=== PATIENT | female | born 1990 | race Caucasian/White ===

== ENCOUNTER → 2016-11-20 | Outpatient (REF) | payer BC ==
[2016-11-20 17:05] LABS: CONTROL LINE HCG INT CTR LINE PRESENT
== END ==
LOC: M LAB REF 16:38
PROVIDERS: ATTEND Nurse Practitioner Adult Health
DX: N91.2 Amenorrhea, unspecified (principal)

== ENCOUNTER → 2020-02-04 | Outpatient (REF) | payer OTHER ==
[2020-02-04 17:22] LABS: HEMATOCRIT 38.2 % (36.0-47.0); MEAN CORPUSCULAR HEMOGLOBIN 30.2 pg (27.0-33.0); MEAN CORPUSCULAR VOLUME 88.8 fl (80.0-96.0); PLATELET COUNT, AUTOMATED 290 10^3/uL (150-450); WHITE BLOOD COUNT 9.1 10^3/uL (4.0-10.0)
[2020-02-04 18:50] LABS: CHLAMYDIA DNA AMPLIFICATION NEGATIVE (NEGATIVE); GC DNA AMPLIFICATION NEGATIVE (NEGATIVE)
[2020-02-07 08:52] LABS: HIV 1&2 SCREEN CENTAUR NEGATIVE (NEGATIVE); RUBELLA IgG QUALITATIVE IMMUNE (IMMUNE)
[2020-02-07 11:20] LABS: HEPATITIS B SURFACE ANTIGEN NEGATIVE (NEGATIVE); HEPATITIS C VIRUS ABY INDEX 0.1 INDEX (<0.8)
== END ==
LOC: M PLALAB 13:13
PROVIDERS: ATTEND Advanced Practice Midwife
DX: Z34.81 Encounter for supervision of other normal pregnancy, first trimester (principal)

== ENCOUNTER → 2020-03-16 | Outpatient (CLI) | payer OTHER ==
--- NOTE | 2020-03-17 01:28 | REP ---
Clinical: Anatomical evaluation. Comparison: None . Findings: Examination demonstrates a single live intrauterine in variable presentation. motion is identified by technologist. Placenta is noted posterior and grade zero with evidence for placenta previa. Amniotic fluid volume is normal. Cervix measures 5.0 cm in length and appears closed. No evidence for nuchal cord. Gestational age by current measurements 19 weeks 6 days with MARINO 08/04/2020 . FHR equals 169 beats per minute. BPD 4.8 cm 20 weeks 3 days HC 17.6 cm 20 weeks 0 days AC 14.2 cm 19 weeks 4 days FL 3.1 cm 19 weeks 5 days HL 2.8 cm 19 weeks 1 day HC/AC ratio 1.24 Estimated weight 308 grams ( 43rd percentile). Anatomical assessment demonstrates normal structures including cranium, choroid plexus, cavum, cerebellum/posterior fossa, facial features, lungs, four-chamber heart, diaphragm, stomach, cord insertion/three-vessel cord, kidneys/bladder, spine, and extremities. Impression: 1. Single live intrauterine in variable presentation demonstrating appropriate estimated weight. 2. Placenta previa noted. 3. Limited evaluation of the cardiac ventricular outflow tracts. Remainder of the anatomical assessment is complete and normal. Electronically Signed by Gamal Quiroz MD 03/17/2020 01:20 A
== END ==
LOC: M RAD 13:25
PROVIDERS: ATTEND Advanced Practice Midwife
DX: Z34.90 Encounter for supervision of normal pregnancy, unspecified, unspecified trimester (principal)

== ENCOUNTER → 2020-05-04 | Outpatient (REF) | payer OTHER ==
[2020-05-04 18:45] LABS: HEMATOCRIT 33.1 % (36.0-47.0); HEMOGLOBIN 10.8 g/dl (12.0-15.5); MEAN CORPUSCULAR HEMOGLOBIN 30.8 pg (27.0-33.0); MEAN CORPUSCULAR HGB CONC 32.6 g/dl (32.0-36.5); MEAN CORPUSCULAR VOLUME 94.3 fl (80.0-96.0); PLATELET COUNT, AUTOMATED 213 10^3/uL (150-450); RED BLOOD COUNT 3.51 10^6/uL (4.00-5.40)
== END ==
LOC: M PLALAB 12:56
PROVIDERS: ATTEND Specialist
DX: Z36.89 Encounter for other specified antenatal screening (principal); Z3A.01 Less than 8 weeks gestation of pregnancy
CPT/HCPCS: 36415; 82950; 85027; 86850; 86900; 86901; J2790

== ENCOUNTER → 2020-05-04 | Outpatient (CLI) | payer OTHER ==
[~2020-05-04] MED LIST: CVS1CAP2 PO; IBUP80TA PO; PRENTAB53 PO; elderberry PO
--- NOTE | 2020-05-22 14:59 | REP ---
REASON FOR EXAM: Followup. Prior exam of 03/16/2020 showed possible placenta previa and incomplete evaluation of the ventricular outflow tracts. Multiple ultrasonographic images of the gravid uterus show a single living intrauterine gestation in the breech presentation. Doppler interrogation of the heart shows a heart rate of 156 beats per minute. The placenta is posterior and not low-lying. The subjective amniotic fluid volume is within normal limits. The cervix measures 4 cm in length and is closed. The placental tip is seen 2 cm from the internal os on today's exam. BPD 6.7 cm = 27 weeks 0 days HC 25.7 cm = 27 weeks 6 days AC 23.6 cm = 27 weeks 6 days FL 5.0 cm = 27 weeks 0 days Estimated weight is 1088 grams which is at the 62nd percentile for a 98-fpzh-3-day gestational age. The right and left ventricular outflow tracts were seen to be within normal limits on today's exam. This completes the anatomical screen. IMPRESSION: Single living intrauterine gestation as described above with an estimated gestational age of 27 weeks 0 days via composite criteria and estimated date of delivery of 08/03/2020 by today's exam. No anomalies were detected. It should be stated that the examination is dated 05/04/2020, however, it has been brought to my attention for the first time for interpretation today at this time.
== END ==
LOC: M WHC 13:15
PROVIDERS: ATTEND Specialist
DX: Z36.2 Encounter for other antenatal screening follow-up (principal); Z3A.27 27 weeks gestation of pregnancy

== ENCOUNTER → 2020-06-23 | Outpatient (CLI) | payer OTHER ==
--- NOTE | 2020-08-07 10:39 | REP ---
OB ULTRASOUND: HISTORY: Possible placenta previa, low lying placenta. Please note this dictation is delayed due to computer malfunctions. TECHNIQUE: Real time sonographic evaluation of the gravid uterus is performed utilizing transabdominal and endovaginal technique. FINDINGS: There is a single living intrauterine gestation. The estimated gestational age is reportedly 33 weeks 4 days, EDC 11/01/20. Today's measurements indicate appropriate growth. BIOMETRY CHART: BPD 81 mm 32 weeks 3 days 16th percentile Head circumference 304 mm 22 weeks 6 days 19th percentile Abdominal circumference 313 mm 35 weeks 3 days 90th percentile Femur length 63 mm 32 weeks 6 days 20th percentile Estimated weight is 2351 grams, 59th percentile. position is vertex. Placenta is low-lying. It is grade 2. The inferior edge of the placenta is 1.7 cm from the internal cervical os. The cervix is closed and measures 4.3 cm in length. heart rate is 157 beats per minute. Amniotic fluid appears within normal limits. SCOT is 13.1. MTDD
== END ==
LOC: M WHC 17:01
PROVIDERS: ATTEND Obstetrics & Gynecology
DX: O44.43 Low lying placenta NOS or without hemorrhage, third trimester (principal); Z3A.33 33 weeks gestation of pregnancy

== ENCOUNTER → 2020-07-13 | Outpatient (CLI) | payer OTHER | LOC: M LABSMTC 11:28 | PROVIDERS: ATTEND Anesthesiology | DX: Z01.812 Encounter for preprocedural laboratory examination (principal); Z11.59 Encounter for screening for other viral diseases ==

== ENCOUNTER 2020-07-14 18:56 | Inpatient (IN) | payer OTHER ==
[~2020-07-14] VITALS: Ht 165.1 cm; Wt 79.5 kg
[~2020-07-14 18:56] MED LIST changes: -IBUP80TA PO
[2020-07-14 19:15] VITALS: BP 121/76
[2020-07-14 19:23] VITALS: BP 127/79
[2020-07-14] MEDS ORDERED: LR 1,000 ML IV SCH (19:31)
[2020-07-14] MEDS ORDERED: LACTATED RINGER'S 1000 ML IV STA ×2 (19:31→21:11)
--- NOTE | 2020-07-14 19:37 | IPNPDOC ---
Text Note Date of Service The patient was seen on 07/14/20. NOTE Outpatient 29yo MARINO 08/07/2020. Presents @ 36w4d with reports of UC since 1100, stronger and regular at 5pm. Known previa, scheduled for next Friday. Cat 1 tracing UC 2-3 minutes x 45-60 seconds, moderate SVE FT-1, 50, -3, soft. No blood on glove. Dr Warner consulted. IV hydration, maintain NPO. Reassess VS,Fishbone, I+O VS, Fishbone, I+O Vital Signs Date Time Temp Pulse Resp B/P (MAP) Pulse Ox O2 Delivery O2 Flow Rate FiO2 07/14/20 19:26 98.7 07/14/20 19:23 90 18 127/79 (95) Nancy Seals CNM Jul 14, 2020 19:37
[2020-07-14 20:13] LABS: HEMATOCRIT 34.5 % (36.0-47.0); HEMOGLOBIN 11.2 g/dl (12.0-15.5); MEAN CORPUSCULAR HEMOGLOBIN 28.5 pg (27.0-33.0); MEAN CORPUSCULAR HGB CONC 32.5 g/dl (32.0-36.5); MEAN CORPUSCULAR VOLUME 87.8 fl (80.0-96.0); PLATELET COUNT, AUTOMATED 270 10^3/uL (150-450); RED BLOOD COUNT 3.93 10^6/uL (4.00-5.40); WHITE BLOOD COUNT 10.3 10^3/uL (4.0-10.0)
[2020-07-14 20:27] VITALS: BP 102/61
[2020-07-14 21:06] VITALS: BP 124/73
[2020-07-14] MEDS ORDERED: ceFAZolin SOD 2 GM in IV 1 EA IV ONE (21:15)
[2020-07-14] MEDS ORDERED: BICITRA 30ML SOLN UDC PO ONE (21:15)
[2020-07-14] MEDS ORDERED: AZITHROMYCIN INJ 500 MG, VIAL MATE ADAPTER 1 EACH in D5W 250 ML IV ONE (21:15)
--- NOTE | 2020-07-14 21:30 | HPEPDOC ---
Obstetrical History & Physical General Date of Admission Jul 14, 2020 at 21:07 History of Present Illness Chief Complaint: Contractions, term, Other (known placenta previa) Information Provided By: Patient Age: 29 : 3 Term: 2 Pre-term: 0 Abortions: 0 Livin Care Care: Good Care Dating Final EDC: Aug 07, 2020 EGA at Admission: 36 (+4) Past Medical History Past Obstetrical History #1: Past Obstetrical History: Primgravida Type of Delivery: Spontaneous Vaginal Del. 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 Past Medical History Medical History Noncontributory Surgical History: [place] teeth, Other (kidney and bilateral knee) Family History Significant Family History: No pertinent family hx Social History Marital Status: Family situation: Spouse/partner home Psychosocial History: No pertinent psych hx * Smoker: non-smoker Alcohol: Denies Drugs: denies Allergies Coded Allergies: codeine (Verified Adverse Reaction, Unknown, NAUSEA, 07/11/20) Medications Scheduled Lactobacillus Combo No.10 (Probiotic) 1 Each Capsule, 1 CAP PO DAILY Vit,Calc76/Iron/Folic (Prenatabs Rx Tablet) 1 Each Tablet, 1 TAB PO DAILY [elderberry] , PO DAILY Physical Examination Physical Examination GENERAL: Alert and oriented times three. BREAST: . ABDOMEN: Gravid and non-tender to touch. FETUS: Is vertex (VTX) by sterile vaginal examination (SVE), fetus is vertex (VTX) by Damir. HEART RATE: Regular rate and rhythm. LUNGS: Clear to auscultation (CTA). EXTREMITIES: No edema. No clonus. Deep tendon reflexes (DTRs) + 2. Vital Signs/I&O Vital Signs Date Time Temp Pulse Resp B/P (MAP) Pulse Ox O2 Delivery O2 Flow Rate FiO2 07/14/20 20:27 91 18 102/61 (75) 07/14/20 19:26 98.7 Laboratory Data 24H LABS Laboratory Tests 2 07/14/20 19:50: Nucleated Red Blood Cells % (auto) 0.0, Syphilis Serology NONREACTIVE CBC/BMP Laboratory Tests 07/14/20 19:50 Pertinent Laboratoy Data Blood Type: O- RBC Antibody Screen: Negative HIV: Negative Hepatitis B: Negative Hepatitis C: Negative Rapid Plasma Reagin: Nonreactive Rubella: Immune Chlamydia/Gonorrhea: Negative Group B Streptococcus: Unknown Glucose Tolerance Test: 106 Anatomy Ultrasound Ultrasound Date: Mar 16, 2020 Normal Anatomy: Yes Placenta Previa: Yes Estimated Weight (grams): 308 (43%) Other Ultrasounds 05/04/2020 Normal f/u anatomy. Placenta 2cm from os. EFW 1088 62% 06/23/2020 Vertex EFW 2351m 57%, low lying 1.7cm from os. SCOT 13.1 Steroid Therapy Steroid Therapy: No Vaginal Examination Dilation: 2cm (exam hour previous FT-1) Effacement: 50% Station: -3 Cervical Consistency: Medium Cervical Position: Posterior Presentation: Cephalic presentation Assessment Heart Rate (FHR): 145 Variability: Moderate Accelerations: Positive Decelerations: None Tocometer Contractions: Yes Frequency: every 1-3 min. Strength: palpated as moderate Assessment/Plan Assessment Radha is a 29-year-old (G)3 para (P)2-0-0-2 at 36+4 weeks. Presents to Labor and Delivery (L&D) with complaints of contractions, increasing intensity since 0. Known low lying/placenta previa. Denies bleeding or LOF. Fetus is active. 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 Diet: NPO. Group B Streptococcus (GBS) unknown. Labs and intravenous (IV) per unit protocol. Counseled on Pitocin and induction of labor (IOL). Lactated Ringers (LR): Bolus 1000 mL, then at 125 mL/hr. Planned scheduled for next week. Dr Timmy oliva for delivery tonight. Nancy Seals CNM Jul 14, 2020 21:16
[2020-07-14] MEDS ORDERED: OXYTOCIN INJ 10 UNITS/ML VIAL (J2590) As Ordered ONE (22:25)
[2020-07-14] MEDS ORDERED: MORPHINE PRES-FREE INJ 10 MG/10 ML VIAL (J2274) As Ordered ONE (22:25)
[2020-07-14] MEDS ORDERED: ONDANSETRON 4MG/2ML VIAL As Ordered ONE (22:25)
[2020-07-14] MEDS ORDERED: ePHEDrine SULFATE 25 MG/5 ML(5MG/ML) SYRINGE As Ordered ONE (22:41)
[2020-07-14] MEDS ORDERED: PHENYLephrine HCL 500 MCG/5 ML (100MCG/ML) SYRINGE (J2370) As Ordered ONE (22:42)
[2020-07-14] MEDS ORDERED: KETOROLAC 60MG 2ML VIAL As Ordered ONE (22:56)
[2020-07-14] MEDS ORDERED: diphenhydrAMINE 50MG/ML VIAL (J1200) IV PRN ×2 (23:00→23:45)
[2020-07-14] MEDS ORDERED: ONDANSETRON 4MG/2ML VIAL IV PRN ×3 (23:00→23:45)
[2020-07-14] MEDS ORDERED: NALOXONE INJ 0.4MG/1ML VIAL (J2310 PER 1MG) IV PRN ×2 (23:00)
[2020-07-14] MEDS ORDERED: METOCLOPRAMIDE INJ 10MG/2ML VIAL (J2765 PER 1) IV PRN (23:00)
[2020-07-14] MEDS ORDERED: OXYTOCIN DRIP 30 UNITS in IV 1 EA IV SCH (23:27)
[2020-07-14] MEDS: LR 1,000 ML IV SCH (23:27)
[2020-07-14] MEDS ORDERED: ONDANSETRON 4 MG TAB PO PRN (23:30)
[2020-07-14] MEDS ORDERED: MEASLES,MUMPS,RUBELLA VACCINE INJ (MMR-II) (90707) SC SCH (23:30)
[2020-07-14] MEDS ORDERED: RHOGAM 300 MCG (1500 IU) INJ (J2790) IM SCH (23:30)
[2020-07-14] MEDS ORDERED: MEPERIDINE INJ 25 MG/ML VIAL (J2175) IV PRN (23:45)
[2020-07-14] MEDS ORDERED: oxyCODONE 5MG TAB PO PRN (23:45)
[2020-07-14] MEDS ORDERED: fentaNYL 100 MCG/2 ML INJECTION (J3010) IV PRN (23:45)
[2020-07-14] MEDS ORDERED: HYDROMORPHONE HCL 0.5 MG/ 0.5 ML SYRINGE (J1170 PER 1) IV PRN (23:45)
[2020-07-15] VITALS (9 sets, daily range): BP systolic 93–105; BP diastolic 51–62
[2020-07-15] MEDS ORDERED: OXYTOCIN 30 UNITS IN 0.9% NaCl 500ML IV BAG (J2590) As Ordered ONE (00:10)
[2020-07-15] MEDS: KETOROLAC 30 MG/ML 1ML VIAL IV SCH ×3 (04:40→16:49)
[2020-07-15] MEDS: LR 1,000 ML IV SCH (06:20)
[2020-07-15] MEDS: PERCOCET 5MG/325MG TAB PO PRN ×3 (06:21→16:49)
[2020-07-15 06:57] LABS: HEMOGLOBIN 9.2 g/dl (12.0-15.5); MEAN CORPUSCULAR HEMOGLOBIN 29.2 pg (27.0-33.0); MEAN CORPUSCULAR HGB CONC 32.9 g/dl (32.0-36.5); MEAN CORPUSCULAR VOLUME 88.9 fl (80.0-96.0); PLATELET COUNT, AUTOMATED 202 10^3/uL (150-450); RED BLOOD COUNT 3.15 10^6/uL (4.00-5.40); WHITE BLOOD COUNT 12.8 10^3/uL (4.0-10.0)
--- NOTE | 2020-07-15 07:15 | IPNPDOC ---
Text Note Date of Service The patient was seen on 07/15/20. NOTE PO #1 Feels well. Adequate pain management. Aldana still in place. Breast feeding. Desires abdominal binder VSS, afebrile, normotensive Breasts soft, nipples intact Fundus firm, NT Dressing intact, scant old drainage Lochia rubra scant without odor PO #1 Routine care. Anticipate D/C in am VS,Fishbone, I+O VS, Fishbone, I+O Laboratory Tests 07/14/20 19:50 07/15/20 06:32 Vital Signs Date Time Temp Pulse Resp B/P (MAP) Pulse Ox O2 Delivery O2 Flow Rate FiO2 07/15/20 06:21 18 07/15/20 05:55 98.0 77 94/51 (65) 98 I&O- Last 24 Hours up to 6 AM 07/15/20 06:00 Intake Total 1300 ml Output Total 700 ml Balance 600 ml Nancy Seals CNM Jul 15, 2020 07:15
[2020-07-15] MEDS: PRENATAL VITAMINS CHEWABLE TABLET PO SCH (11:06)
[2020-07-16] MEDS: IBUPROFEN 800 MG TAB PO SCH ×3 (01:27→17:11)
[2020-07-16 02:08] VITALS: BP 98/56
[2020-07-16] MEDS: PERCOCET 5MG/325MG TAB PO PRN ×4 (02:19→22:48)
[2020-07-16 06:05] VITALS: BP 92/58
[2020-07-16] MEDS: PRENATAL VITAMINS CHEWABLE TABLET PO SCH (08:58)
[2020-07-16] MEDS: DOCUSATE SODIUM 100 MG CAP PO PRN (08:58)
[2020-07-16] MEDS: SIMETHICONE 80 MG CHEW TAB PO PRN ×2 (15:40→22:47)
[2020-07-16 20:33] VITALS: BP 111/71
[2020-07-17] MEDS: IBUPROFEN 800 MG TAB PO SCH ×2 (01:14→09:00)
[2020-07-17] MEDS: PERCOCET 5MG/325MG TAB PO PRN ×4 (04:54→15:29)
[2020-07-17 05:59] VITALS: BP 93/59
[2020-07-17] MEDS ORDERED: IBUP80TA PO (08:16)
[2020-07-17] MEDS: SIMETHICONE 80 MG CHEW TAB PO PRN (08:59)
[2020-07-17] MEDS: PRENATAL VITAMINS CHEWABLE TABLET PO SCH (08:59)
[2020-07-17] MEDS: DOCUSATE SODIUM 100 MG CAP PO PRN (15:29)
--- NOTE | 2020-08-10 09:23 | RO ---
DATE OF OPERATION: 07/14/2020 PREOPERATIVE DIAGNOSIS: 36 and 4/7 weeks gestation, labor, placenta previa POSTOPERATIVE DIAGNOSIS: 36 and 4/7 weeks gestation, labor, placenta previa PROCEDURE: Primary low-transverse section SURGEON: Fabian Warner MD DIRECTOR INSURANCE: Bandar Kumar MD ANESTHESIA: Spinal. ESTIMATED BLOOD LOSS: 700 ml URINE OUTPUT: 125 ml. FINDINGS: 7 pound, 4 ounce, 3280 gm male infant, vertex, score 7 and 9, posterior placenta previa noted. Normal uterus, fallopian tubes and ovaries. OPERATIVE SUMMARY: The patient taken to the operating room where spinal anesthesia was induced. She was prepped and draped in a sterile fashion in a supine position. A Aldana catheter was placed. A Pfannenstiel skin incision and scalpel carried through to the fascia. The fascia was nicked and extended. The fascia was resected off the rectus muscles. Abdominal cavity was entered. A Mobius retractor was placed. Curvilinear incision was made in the lower uterine segment until bulging membranes was noted. This was extended medially. Membranes were ruptured with clear fluid. The was delivered in the vertex position without difficulty. The cord was double clamped and cut. A true knot was noted in the umbilical cord. The infant was handed to the nurse. The placenta was expressed. The uterus was exteriorized, cleared of clots. The uterus was closed with 0-Vicryl in a running locked fashion. A second imbricating layer of 0-Vicryl was placed. Mobius retractor was removed. The peritoneum was closed with 2-0 Vicryl in a running fashion. The fascia was closed with 0-Vicryl in a running fashion. The deep layer was irrigated and closed with 2-0 chromic. The skin was closed with 4-0 Monocryl subcutaneous sutures. Sponge, instrument and needle courts were correct. [facility]
--- NOTE | 2020-08-10 11:16 | DSES ---
DATE OF ADMISSION: 07/14/2020 DATE OF DISCHARGE: 07/17/2020 A 29-year-old G3, P2 female at 36-4/7 weeks gestation presents with regular contractions every 4-5 minutes for the last several hours. The contractions increased in intensity. The patient has a history of known placenta previa. HOSPITAL COURSE: Patient was admitted on 07/14/2020. Patient was observed for several hours and made cervical change and became more uncomfortable. Patient is planning on a section for placenta previa. Due to labor with a known placenta previa, section was performed on 07/14/2020. This resulted in a 7-pound 4-ounce . There were no complications. Her postoperative course was unremarkable. She had adequate return of bladder and bowel function. Her postoperative hemoglobin was 9.2 grams/dL. Baby remained in the intensive care unit (ICU) at [facility]. The patient was deemed stable for discharge on postoperative day #3. ADMISSION DIAGNOSIS: at 36-4/7 weeks gestation, placenta previa, labor. DISCHARGE DIAGNOSIS: Delivered. PROCEDURE: Primary section. DISPOSITION: Patient will followup with Dr. Warner in 2 weeks. Instructions were reviewed. SURENDRA
== END 2020-07-17 15:45 | disposition home or self-care (01) | DRG 786 ==
LOC: M LDO 18:56 → M LDI 21:07 → M OBS 07-15 01:50
PROVIDERS: ADMIT Advanced Practice Midwife; ATTEND Advanced Practice Midwife
PROC: 10D00Z1 Extraction of Products of Conception, Low, Open Approach (ICD-10-PCS; principal; 2020-07-14 13:40)
DX: O44.00 Complete placenta previa NOS or without hemorrhage, unspecified trimester (principal); O60.14X0 Preterm labor third trimester with preterm delivery third trimester, not applicable or unspecified; Z37.0 Single live birth; Z3A.36 36 weeks gestation of pregnancy

== ENCOUNTER → 2020-09-12 | Outpatient (REF) | payer OTHER, BC ==
[~2020-09-12] MED LIST changes: +IBUP80TA PO
== END ==
LOC: M SFHCWAGY 10:26
PROVIDERS: ATTEND Specialist
DX: Z01.419 Encounter for gynecological examination (general) (routine) without abnormal findings (principal); Z12.4 Encounter for screening for malignant neoplasm of cervix

== ENCOUNTER → 2020-09-26 | Outpatient (CLI) | payer OTHER, BC | LOC: M LABSMTC 10:46 | PROVIDERS: ATTEND Family Medicine | DX: Z20.828 Contact with and (suspected) exposure to other viral communicable diseases (principal) ==

== ENCOUNTER → 2020-10-23 | Outpatient (CLI) | payer SELFPAY | LOC: M LABSMTC 19:21 | PROVIDERS: ATTEND Pediatrics | DX: Z20.828 Contact with and (suspected) exposure to other viral communicable diseases (principal) ==

== ENCOUNTER → 2021-03-22 | Outpatient (REF) | payer BC, OTHER ==
[2021-03-23 20:57] LABS: H PYLORI QUALITATIVE IgG NEGATIVE (NEGATIVE)
== END ==
LOC: M LAB REF 16:11
PROVIDERS: ATTEND Nurse Practitioner Adult Health
DX: R10.9 Unspecified abdominal pain (principal)

== ENCOUNTER → 2021-09-22 | Outpatient (REF) | LOC: M LABSMTC 11:08 | PROVIDERS: ATTEND Pediatrics | DX: Z20.828 Contact with and (suspected) exposure to other viral communicable diseases (principal); Z11.52 Encounter for screening for COVID-19 ==

== ENCOUNTER → 2021-10-01 | Outpatient (REF) | payer BC, OTHER | LOC: M SFHCWAGY 18:38 | PROVIDERS: ATTEND Specialist | DX: Z01.419 Encounter for gynecological examination (general) (routine) without abnormal findings (principal) | CPT/HCPCS: 87624; G0123 ==

== ENCOUNTER 2021-10-15 07:25 | Outpatient (RCR) | END 2021-10-15 15:00 | disposition home or self-care (01) | LOC: M EMP 07:25 | PROVIDERS: ATTEND Pediatrics | DX: Z11.52 Encounter for screening for COVID-19 (principal) ==

== ENCOUNTER → 2021-11-29 | Outpatient (REF) | LOC: M LABSMTC 09:22 | PROVIDERS: ATTEND Pediatrics | DX: Z20.822 Contact with and (suspected) exposure to COVID-19 (principal) ==

== ENCOUNTER → 2022-07-23 | Outpatient (REF) | payer BC, OTHER | LOC: M SFHCWAGY 10:09 | PROVIDERS: ATTEND Advanced Practice Midwife | DX: R30.0 Dysuria (principal) ==

== ENCOUNTER → 2023-02-13 | Outpatient (REF) | payer BC | LOC: M PLALAB 16:06 | PROVIDERS: ATTEND Advanced Practice Midwife | DX: Z12.4 Encounter for screening for malignant neoplasm of cervix (principal); R87.612 Low grade squamous intraepithelial lesion on cytologic smear of cervix (LGSIL) | CPT/HCPCS: 87624; G0123 ==

== ENCOUNTER → 2023-05-12 | Outpatient (REF) | LOC: M EMP 08:37 | PROVIDERS: ATTEND Family Medicine | DX: Z11.52 Encounter for screening for COVID-19 (principal) ==

== ENCOUNTER → 2023-10-23 | Outpatient (REF) | payer BC | LOC: M SFHCWAGY 15:12 | PROVIDERS: ATTEND Advanced Practice Midwife | DX: R30.0 Dysuria (principal) ==

== ENCOUNTER → 2024-03-10 | Outpatient (REF) | payer BC | LOC: M PLALAB 09:17 | PROVIDERS: ATTEND Advanced Practice Midwife | DX: Z01.419 Encounter for gynecological examination (general) (routine) without abnormal findings (principal); Z11.51 Encounter for screening for human papillomavirus (HPV) | CPT/HCPCS: 87624; G0123 ==

== ENCOUNTER → 2024-07-26 | Outpatient (REF) | payer BC ==
[2024-07-26 18:19] LABS: APPEARANCE, URINE CLEAR (CLEAR); BACTERIA, URINE AUTO NEGATIVE (NEGATIVE); BILIRUBIN, URINE AUTO NEGATIVE (NEGATIVE); BLOOD, URINE BLOOD NEGATIVE (NEGATIVE); COLOR, URINE YELLOW (YELLOW); GLUCOSE, URINE (UA) AUTO NEGATIVE (NEGATIVE); KETONE, URINE AUTO NEGATIVE (NEGATIVE); LEUKOCYTE ESTERASE, URINE AUTO NEGATIVE (NEGATIVE); NITRITE, URINE AUTO NEGATIVE (NEGATIVE); PROTEIN, URINE AUTO NEGATIVE (NEGATIVE); RBC, URINE AUTO 0 /HPF (0-3); SPECIFIC GRAVITY URINE AUTO 1.012 (1.002-1.035); SQUAMOUS EPITHELIAL CELL UR AU 3 /HPF (0-6); UROBILINOGEN, URINE AUTO 0.2 mg/dL (0.0-2.0); WBC, URINE AUTO 0 /HPF (0-3)
== END ==
LOC: M SFHCWAGY 17:19
PROVIDERS: ATTEND Advanced Practice Midwife
DX: R30.0 Dysuria (principal)

== ENCOUNTER → 2024-07-30 | Outpatient (REF) | LOC: M EMP 09:16 | PROVIDERS: ATTEND Family Medicine | DX: Z11.52 Encounter for screening for COVID-19 (principal) ==

== ENCOUNTER → 2024-08-13 | Outpatient (REF) | payer BC | LOC: M PLALAB 11:10 | PROVIDERS: ATTEND Advanced Practice Midwife | DX: N87.0 Mild cervical dysplasia (principal); N84.1 Polyp of cervix uteri ==

== ENCOUNTER → 2025-11-11 | Outpatient (REF) | LOC: M EMP 13:15 | PROVIDERS: ATTEND Family Medicine | DX: Z01.89 Encounter for other specified special examinations (principal) ==